=== PATIENT | male | born 1950 | race Caucasian/White ===

== ENCOUNTER 2024-03-09 08:40 | Outpatient (CLI) | payer MEDICARE, OTHER | END 2024-03-09 08:41 | disposition home or self-care (01) | LOC: CSHCT 08:40 | PROVIDERS: ATTEND Family Medicine | DX: Z13.6 Encounter for screening for cardiovascular disorders (principal); R91.1 Solitary pulmonary nodule; I70.90 Unspecified atherosclerosis | CPT/HCPCS: 71271; 76706 ==